=== PATIENT | female | born 1940 | race Caucasian/White ===

== ENCOUNTER 2021-06-24 17:53 | Outpatient (CLI) | payer MEDICARE, OTHER ==
--- NOTE | 2021-06-25 09:50 | XRAY Report ---
PROCEDURE: Foot 3 View LT INDICATIONS: LEFT FOOT PAIN TECHNIQUE: 3 views of the foot were acquired. COMPARISON: None. FINDINGS: Bones: No acute fractures or dislocations. No suspicious bony lesions. Moderate hallux valgus. Mil d degenerative changes are seen in the first metatarsophalangeal joint. Suspected pes planus is also seen, although findings are nonspecific on a nonweightbearing image. Degenerative changes are seen at the tarsometatarsal joints and navicular cuneiform articulation. A small plantar calcaneal spur is p resent. Soft tissues: No suspicious soft tissue calcifications. IMPRESSION: 1. No acute osseous abnormality. If there is clinical concern or persistent symptoms, additional scott ging such as repeat radiographs or advanced imaging (e.g. CT, MRI) may be helpful for further evaluat ion. 2. Moderate hallux valgus. 3. Suspected pes planus. Weightbearing radiographs may be obtained for confirmation if indicated cli nically. 4. Moderate to severe degenerative changes at the second and third tarsometatarsal joints and the na vicular-first cuneiform articulation. Reviewed by: Jarrett Sy MD on 06/25/2021 9:49 AM PDT Approved by: Jarrett Sy MD on 06/25/2021 9:49 AM PDT Station ID: [id number]
== END 2021-06-24 23:59 | disposition home or self-care (01) ==
LOC: DI.S 17:53
PROVIDERS: ATTEND Emergency Medicine
DX: M19.072 Primary osteoarthritis, left ankle and foot (principal); M20.12 Hallux valgus (acquired), left foot

== ENCOUNTER 2023-09-04 13:35 | Outpatient (CLI) | payer MEDICARE, OTHER ==
[2023-09-04 20:12] LABS: BASOPHILS % (AUTO) 0.5 %; EOSINOPHILS # (AUTO) 0.2 10^3/uL (0.0-0.7); EOSINOPHILS % (AUTO) 2.1 %; HCT - HEMATOCRIT 44.9 % (37.0-47.0); HGB - HEMOGLOBIN 14.9 g/dL (12.0-16.0); LYMPHOCYTES # (AUTO) 1.6 10^3/uL (1.5-3.5); LYMPHOCYTES % (AUTO) 21.6 %; MEAN CORPUSCULAR HEMOGLOBIN 31.6 pg (27.0-31.0); MEAN CORPUSCULAR HGB CONC 33.2 g/dL (32.0-36.0); MEAN CORPUSCULAR VOLUME 95.1 fL (81.0-99.0); MEAN PLATELET VOLUME 10.7 fL (7.9-10.8); MONOCYTES # (AUTO) 0.5 10^3/uL (0.0-1.0); MONOCYTES % (AUTO) 7.1 %; NEUTROPHILS % (AUTO) 68.6 %; PLT - PLATELET COUNT 252 10^3/uL (130-450); RED BLOOD COUNT 4.72 10^6/uL (4.20-5.40); RED CELL DISTRIBUTION WIDTH 13.5 % (12.0-15.0); WHITE BLOOD COUNT 7.3 x10^3/uL (4.8-10.8)
[2023-09-04 20:25] LABS: ALBUMIN 4.1 g/dL (3.2-5.5); ALBUMIN/GLOBULIN RATIO 1.8 (1.0-2.2); ALKALINE PHOSPHATASE 64 IU/L (42-121); ALT ALANINE AMINOTRANSFERASE 18 IU/L (10-60); AST ASPARTATE AMINOTRANSFERASE 19 IU/L (10-42); BILIRUBIN,TOTAL 0.6 mg/dL (0.2-1.0); BUN - BLOOD UREA NITROGEN 18 mg/dL (6-20); CALCIUM 9.3 mg/dL (8.5-10.3); CARBON DIOXIDE - CO2 29 mmol/L (21-32); CHLORIDE 108 mmol/L (101-111); CHOL/HDL RATIO 2.8 (<4.4); CHOLESTEROL 141 mg/dL; CREATININE 0.8 mg/dL (0.6-1.3); CRP - C-REACTIVE PROTEIN < 0.5 mg/dL (<0.5); GFR - MDRD 69 (>89); GLUCOSE 102 mg/dL (74-104); HDL CHOLESTEROL 51 mg/dL; LDL CHOLESTEROL,CALCULATED 70 mg/dL; LDL/HDL RATIO 1.4 (<4.4); POTASSIUM 3.9 mmol/L (3.5-4.5); SODIUM 142 mmol/L (135-145); TOTAL PROTEIN 6.4 g/dL (6.4-8.9); TRIGLYCERIDES 98 mg/dL (48-352); VLDL CHOLESTEROL 20 mg/dL
[2023-09-04 20:36] LABS: THYROID STIMULATING HORMONE 2.29 uIU/mL (0.34-5.60)
[2023-09-04 20:47] LABS: RHEUMATOID FACTOR NEGATIVE (Negative)
[2023-09-04 21:57] LABS: ESTIMATED AVERAGE GLUCOSE 111 mg/dL (70-100); HEMOGLOBIN A1c% 5.5 % (4.27-6.07)
[2023-09-07 15:09] LABS: ANTINUCLEAR ANTIBODIES IFA Negative (.)
== END 2023-09-04 13:36 | disposition home or self-care (01) ==
LOC: LAB.S 13:35
PROVIDERS: ATTEND Physician Assistant Medical
DX: I25.10 Atherosclerotic heart disease of native coronary artery without angina pectoris (principal); Z95.5 Presence of coronary angioplasty implant and graft; M32.9 Systemic lupus erythematosus, unspecified
CPT/HCPCS: 36415; 80053; 80061; 83036; 83721; 84443; 85025; 85651; 86038; 86140; 86430

== ENCOUNTER 2023-10-18 12:57 | Outpatient (CLI) | payer MEDICARE, OTHER ==
[2023-10-18 15:19] LABS: CHOL/HDL RATIO 2.7 (<4.4); CHOLESTEROL 136 mg/dL; CRP HIGH SENSITIVITY 0.72 mg/L; HDL CHOLESTEROL 50 mg/dL; LDL CHOLESTEROL,CALCULATED 68 mg/dL; LDL/HDL RATIO 1.4 (<4.4); TRIGLYCERIDES 91 mg/dL (48-352); VLDL CHOLESTEROL 18 mg/dL
== END 2023-10-18 12:58 | disposition home or self-care (01) ==
LOC: LAB.S 12:57
PROVIDERS: ATTEND Internal Medicine
DX: I25.10 Atherosclerotic heart disease of native coronary artery without angina pectoris (principal); E78.2 Mixed hyperlipidemia
CPT/HCPCS: 36415; 80061; 83721; 86141

== ENCOUNTER 2023-11-01 08:00 | Outpatient (CLI) | payer MEDICARE, OTHER ==
--- NOTE | 2023-11-01 17:09 | XRAY Report ---
PROCEDURE: Abdomen 2 View X-Ray INDICATIONS: ABDOMINAL PAIN AND BLOATING TECHNIQUE: 2 views of the abdomen were acquired. COMPARISON: None. FINDINGS: Surgical changes and devices: Probable right coronary stent. Bowel: No pneumoperitoneum. The bowel gas pattern is normal. Stool load within normal limits. Soft tissues: No masses; visualized solid organ contours appear normal in size. No suspicious abdom inal calcifications. Lung bases are clear. Bones: No suspicious bony abnormalities. IMPRESSION: Nonobstructive bowel gas pattern. Consider CT abdomen pelvis with IV contrast for further evaluation. Reviewed by: Jorge Lopez MD on 11/01/2023 5:07 PM PST Approved by: Jorge Lopez MD on 11/01/2023 5:07 PM PST Station ID: [id number]
== END 2023-11-01 23:59 | disposition home or self-care (01) ==
LOC: DI.S 08:00
PROVIDERS: ATTEND Physician Assistant Medical
DX: R14.0 Abdominal distension (gaseous) (principal); R10.9 Unspecified abdominal pain; R30.0 Dysuria
CPT/HCPCS: 87086

== ENCOUNTER 2023-12-06 09:32 | Day surgery (SDC) | payer MEDICARE, OTHER ==
[2023-12-06] MEDS ORDERED: LACTATED RINGERS 1,000 ML IV ONE (09:45)
--- NOTE | 2023-12-06 10:21 | ANESTHESIA ---
Pre-Anesthesia VS, & Labs - Diagnosis change in bowel habits - Procedure colonoscopy Vital Signs: Temp Pulse Resp BP Pulse Ox O2 Flow Rate 36.3 C L 69 19 151/80 H 98 12/06/23 09:45 12/06/23 09:45 12/06/23 09:45 12/06/23 09:45 12/06/23 09:45 Height: 5 ft 7 in Weight (kg): 73.3 kg Body Mass Index: 25.2 BMI Classification: Overweight - NPO >8 hours - Is Patient ?: No Home Medications and Allergies Alendronate Sodium 70 mg PO OAW 11/17/23 Aspirin [Aspirin EC] 81 mg PO DAILY 11/17/23 Ezetimibe [Zetia] 10 mg PO DAILY 11/17/23 Metoprolol Succinate [Toprol Xl] 25 mg PO ONCE 11/17/23 Pantoprazole [Protonix] 40 mg PO DAILY 11/17/23 Pregabalin 75 mg PO DAILY 11/17/23 Rosuvastatin Calcium [Crestor] 40 mg PO HS 11/17/23 Allergies/Adverse Reactions: Allergies Allergy/AdvReac Type Severity Reaction Status Date / Time Sulfa (Sulfonamide AdvReac Unknown Verified 11/17/23 13:20 Antibiotics) Anes History & Medical History - Anesthetic History Anesthesia Complications: reports: No previous complications Family history of Anesthesia Complications: Denies Family history of Malignant Hyperthermia: Denies - Medical History Cardiovascular: reports: Hypertension, High cholesterol, Coronary artery disease (coronary stent x1 in 2020 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, no intervention, monitored by cardiology), Other Gastrointestinal: reports: GERD Urinary: reports: None Neuro: reports: None Endocrine/Autoimmune: reports: Systemic lupus erythematosus Smoking Status: Current every day smoker Psychosocial: reports: Alcohol - Surgical History General: reports: Colonoscopy, EGD Cardiothoracic: reports: Coronary stent, Cardiac catheterization Exam General: Alert, Oriented x3, Cooperative Dental: WNL Mouth Openin Fingerbreadth Neck Mobility: Normal Mallampati classification: II Thyromental Distance: 4-6 cm Respiratory: Lungs clear Cardiovascular: Regular rate Plan Anesthesia Type: General, Total IV Consent for Procedure(s) Verified and Reviewed: Yes Code Status: Attempt Resuscitation ASA classification: 3-Severe systemic disease Is this case an emergency?: No
[2023-12-06] MEDS ORDERED: PROPOFOL 200 MG/20 ML VIAL IVP ONE (11:31)
[2023-12-06] MEDS ORDERED: LACTATED RINGERS 500 ML IV ONE (12:26)
[2023-12-06 13:19] VITALS: BP 139/86; O2SAT 100
--- NOTE | 2023-12-06 14:02 | ANESTHESIA POST OP EVALUATION ---
Anesthesia Post Eval - Post Anesthesia Eval Vitals: Last Vital Signs Temp 36.1 C L 12/06/23 12:55 Pulse 75 12/06/23 12:55 Resp 20 12/06/23 12:55 BP 139/86 H 12/06/23 12:55 Pulse Ox 100 12/06/23 12:55 O2 Flow Rate CV Function Including HR & BP: Stable Pain Control: Satisfactory Nausea & Vomiting: Negative Mental Status: Baseline Respiratory Status: Airway Patent Hydration Status: Satisfactory Anesthesia Complications: None
== END 2023-12-06 09:33 | disposition home or self-care (01) ==
LOC: SDS 09:32
PROVIDERS: ATTEND Surgery
DX: R19.4 Change in bowel habit (principal); R14.0 Abdominal distension (gaseous); K57.30 Diverticulosis of large intestine without perforation or abscess without bleeding; I10 Essential (primary) hypertension; I25.10 Atherosclerotic heart disease of native coronary artery without angina pectoris; Z95.5 Presence of coronary angioplasty implant and graft; F17.210 Nicotine dependence, cigarettes, uncomplicated
CPT/HCPCS: 45378; J7120